=== PATIENT | female | born 1985 | race Hispanic/Latino ===

== ENCOUNTER 2017-09-07 18:15 | Emergency (ER) | payer MEDICAID ==
[2017-09-07 18:57] VITALS: RESP 18; BMI 22.3
--- NOTE | 2017-09-07 19:17 | ED PDOC ---
Arrival/HPI - General Chief Complaint: Lower Extremity Problem/Injury Time Seen by Provider: 09/07/17 18:18 Historian: Patient - History of Present Illness Narrative History of Present Illness (Text): 09/07/17 19:13 32 year old female, with no significant past medical history, who presents to the Emergency department complaining of pain to the popliteal area. Patient notes pain as a intermittent and pulsating. Patient notes she takes control pills and recently started smoking. Patient denies any fever, chills, chest pain, shortness of breath, nausea, vomiting, diarrhea, back pain, neck pain, headache, dizziness, or any other complaints. Time/Duration: Other (last night) Symptom Onset: Sudden Symptom Course: Intermittent Activities at Onset: Light Context: Home Past Medical History - Provider Review Nursing Documentation Reviewed: Yes - Infectious Disease Hx of Infectious Diseases: None - Reproductive Menopause: No - Cardiac Other/Comment: DVT - Renal Hx Renal Disorder: No - Endocrine/Metabolic Hx Endocrine Disorders: No - Integumentary Hx Dermatological Disorder: No - Gastrointestinal Hx Gastrointestinal Disorders: No - Genitourinary/Gynecological Hx Genitourinary Disorders: No - Psychiatric Hx Substance Use: No - Anesthesia Hx Anesthesia: No Family/Social History - Physician Review Nursing Documentation Reviewed: Yes Family/Social History: Unknown Family HX Smoking Status: Current Some Days Smoker Hx Alcohol Use: No Hx Substance Use: No Hx Substance Use Treatment: No Allergies/Home Meds Allergies/Adverse Reactions: Allergies No Known Allergies Allergy (Verified 09/08/12 11:43) Home Medications: Home Meds Medication Instructions Recorded Confirmed Balsalazide [Colazal] 2,250 mg PO TID 09/08/12 09/07/17 Contol Pills PO 09/08/12 09/08/12 Review of Systems - Physician Review All systems were reviewed & negative as marked: Yes - Review of Systems Constitutional: Normal Eyes: Normal ENT: Normal Respiratory: Normal. absent: SOB, Cough Cardiovascular: Normal. absent: Chest Pain Gastrointestinal: Normal. absent: Abdominal Pain, Diarrhea, Nausea, Vomiting Genitourinary Female: Normal. absent: Dysuria, Frequency Musculoskeletal: Other (politeal area pain). absent: Back Pain, Neck Pain Skin: Normal. absent: Rash Neurological: Normal. absent: Headache, Dizziness Endocrine: Normal Hemo/Lymphatic: Normal Psychiatric: Normal Physical Exam - Physical Exam Narrative Physical Exam (Text): 09/07/17 19:19 Constitutional: No acute distress. Head: Normocephalic. Atraumatic. Eyes: PERRL. ENT: Moist mucous membranes. Neck: Supple. Cardiovascular: Regular rate. DP pulse 2+. Chest: No tenderness. Respiratory: Clear to auscultation bilaterally. GI: Soft. Nontender. Nondistended. Back: No CVA tenderness. Musculoskeletal: No tenderness or swelling of extremities. Skin: No rash. Neurologic: Alert, no focal deficit. Vital Signs Reviewed: Yes Vital Signs Temp Pulse Resp BP Pulse Ox 09/07/17 18:31 99.0 F 67 18 114/76 98 Temperature: Afebrile Blood Pressure: Normal Pulse: Regular Respiratory Rate: Normal Appearance: Positive for: Well-Appearing, Non-Toxic, Comfortable Pain Distress: None Mental Status: Positive for: Alert and Oriented X 3 Medical Decision Making ED Course and Treatment: 09/07/17 19:19 Impression: 32 year old female presents to the Emergency department complaining of pain to the popliteal area. Plan: -- US lower extremity -- Reassess and disposition Progress Notes: 09/07/17 19:52 Doppler negative for DVT as per US imaging technician. - RAD Interpretation Radiology Orders: 09/07/17 19:13 DUPLEX LOWER EXTRM VEIN LEFT [US] Stat - Scribe Statement The provider has reviewed the documentation as recorded by the Scribe Gema Delcid All medical record entries made by the Scribe were at my direction and personally dictated by me. I have reviewed the chart and agree that the record accurately reflects my personal performance of the history, physical exam, medical decision making, and the department course for this patient. I have also personally directed, reviewed, and agree with the discharge instructions and disposition. Disposition/Present on Arrival - Present on Arrival Any Indicators Present on Arrival: No History of DVT/PE: No History of Uncontrolled Diabetes: No Urinary Catheter: No History of Decub. Ulcer: No History Surgical Site Infection Following: None - Disposition Have Diagnosis and Disposition been Completed?: Yes Diagnosis: Leg pain Disposition: HOME/ ROUTINE Disposition Time: 19:52 Patient Plan: Discharge Condition: STABLE Discharge Instructions (ExitCare): Muscle and Bone Pain (DC) Referrals: Dina Charles MD [Family Provider] - Follow up with primary Forms: [facility] (Arabic)
[2017-09-07 21:03] VITALS: BP 120/68; PULSE 72; TEMP 98.9; O2SAT 99
--- NOTE | 2017-09-08 15:57 | US ---
PROCEDURE: Left lower extremity venous US HISTORY: Leg pain and swelling. Evaluate for DVT. PHYSICIAN(S): Kannan Sandhu MD. TECHNIQUE: Duplex sonography and color-flow Doppler with graded compression were used to evaluate the deep venous system of the left lower extremity. FINDINGS: The visualized deep venous system of the left lower extremity is sonographically normal and compressible. Normal wave forms and augmentation are seen. There is no sonographic evidence for deep venous thrombosis in the visualized segments of the left lower extremity. IMPRESSION: 1. No sonographic evidence for deep venous thrombosis in the visualized segments of the left lower extremity.
== END 2017-09-07 20:05 | disposition home or self-care (01) ==
LOC: ED 18:15
DX: M79.604 Pain in right leg (principal)

== ENCOUNTER 2018-03-19 18:36 | Emergency (ER) | payer MEDICAID ==
[2018-03-19 18:37] VITALS: BMI 21.7
[2018-03-19] MEDS ORDERED: DiphenhydrAMINE 50 mg/ml Inj IVP STA (18:42)
[2018-03-19] MEDS ORDERED: EPINEPHrine 1 mg/ml (1:1000) Inj SC STA (18:42)
[2018-03-19] MEDS ORDERED: Sodium Chloride 0.9% 1,000 ML IV STA (18:45)
[2018-03-19] MEDS ORDERED: Albuterol 0.083% Inhal Sol (2.5 mg/3 mL) UD INH STA (18:45)
[2018-03-19] MEDS ORDERED: Albuterol 0.083% Inhal Sol (2.5 mg/3 mL) UD ONE (18:55)
[2018-03-19 19:11] LABS: BASO # 0.02 K/mm3 (0.0-2.0); BASO % 0.2 % (0.0-3.0); EOS # 0.4 (0.0-0.7); EOS % 3.6 % (1.5-5.0); GRAN # 6.08 (1.4-6.5); GRAN % 52.5 % (50.0-68.0); HEMOGLOBIN 13.7 g/dL (12.0-16.0); LYMPH # 4.7 (1.2-3.4); LYMPH % 40.8 % (22.0-35.0); MEAN CELL VOLUME 95.8 fl (80.0-105.0); MEAN CORPUSCULAR HEMOGLOBIN 31.9 pg (25.0-35.0); MEAN CORPUSCULAR HGB CONC 33.3 g/dl (31.0-37.0); MONO # 0.3 (0.1-0.6); MONO % 2.9 % (1.0-6.0); RBC 4.3 10^6/uL (3.5-6.1); RED CELL DISTRIBUTION WIDTH 13.1 % (11.5-14.5); WHITE BLOOD COUNT 11.6 10^3/uL (4.5-11.0)
[2018-03-19 19:17] LABS: ALB/GLOB RATIO 1.4 (1.1-1.8); ALT/SGPT 15 U/L (7-56); AST/SGOT 25 U/L (14-36); BLOOD UREA NITROGEN 10 mg/dL (7-21); CALCIUM 9.9 mg/dL (8.4-10.5); GFR NON-AFRICAN AMERICAN > 60
[2018-03-19 19:28] LABS: TROPONIN I < 0.01 ng/mL
--- NOTE | 2018-03-19 20:02 | ED PDOC ---
Arrival/HPI - General Chief Complaint: Allergic Reaction Time Seen by Provider: 03/19/18 18:42 Historian: Patient, EMS EM Caveat: Acuity of Condition - Critical Care Critical Care Minutes: 30 minutes - History of Present Illness Narrative History of Present Illness (Text): 03/19/18 19:58 32F w/ h/o seasonal allergies presenting to the Emergency Room for allergic r eaction that occurred several hours prior to arrival. The patient states she ordered sushi from a local restaurant that contained spicy tuna as well as spicy boris sauce as she had done in the past. She states she began to feel hives, shortness of breath and a pruritic throat immediately after ingesting the food. She denies any previous history of similar reactions in the past and has ingested the same assortment of food prior, so she was unsure of identifying the specific cause of the allergic reaction. She denies having any medications given prior to her arrival to the Emergency Room. PCP: Dr. Charles Time/Duration: Prior to Arrival Symptom Onset: Sudden Symptom Course: Unchanged Quality: Tightness, Burning Activities at Onset: Eating Context: Home Past Medical History - Provider Review Nursing Documentation Reviewed: Yes - Travel History Have you recently traveled outside [place] w/in the past 3 mons?: No - Infectious Disease Hx of Infectious Diseases: None - Cardiac Other/Comment: DVT - Renal Hx Renal Disorder: No - Endocrine/Metabolic Hx Endocrine Disorders: No - Integumentary Hx Dermatological Disorder: No - Gastrointestinal Hx Gastrointestinal Disorders: No - Genitourinary/Gynecological Hx Genitourinary Disorders: No - Psychiatric Hx Substance Use: No - Anesthesia Hx Anesthesia: No Family/Social History - Physician Review Nursing Documentation Reviewed: Yes Family/Social History: Unknown Family HX Smoking Status: Current Some Days Smoker Hx Alcohol Use: No Hx Substance Use: No Hx Substance Use Treatment: No Allergies/Home Meds Allergies/Adverse Reactions: Allergies No Known Allergies Allergy (Verified 03/19/18 18:42) Home Medications: Home Meds Medication Instructions Recorded Confirmed Balsalazide [Colazal] 2,250 mg PO TID 09/08/12 09/07/17 Contol Pills PO 09/08/12 09/08/12 Review of Systems - Review of Systems Systems not reviewed;Unavailable: Acuity of Condition Physical Exam Vital Signs Reviewed: Yes Vital Signs Temp Pulse Resp BP Pulse Ox 03/19/18 18:37 97.6 F 125 H 20 126/87 97 Temperature: Afebrile Blood Pressure: Normal Pulse: Tachycardic Respiratory Rate: Tachypneic Appearance: Positive for: Well-Appearing, Non-Toxic, Uncomfortable Pain Distress: None Mental Status: Positive for: Alert and Oriented X 3 - Systems Exam Head: Present: Atraumatic, Normocephalic Pupils: Present: PERRL Extroacular Muscles: Present: EOMI Conjunctiva: Present: Normal Mouth: Present: Moist Mucous Membranes Pharnyx: No: TONSILS ENLARGED, Peritonsilar Swelling, Uvular Deviation, Muffled/Hoarse Voice Neck: Present: Normal Range of Motion Respiratory/Chest: Present: Decreased Breath Sounds, Tachypneic. No: Accessory Muscle Use, Wheezes Cardiovascular: Present: Tachycardic Abdomen: Present: Normal Bowel Sounds. No: Tenderness, Distention, Peritoneal Signs Skin: Present: Warm, Dry, Rashes (Diffuse urticarial blanching urticarial rash spanning neck and upper chest area) Psychiatric: Present: Alert, Oriented x 3, Normal Insight, Normal Concentration Medical Decision Making ED Course and Treatment: 03/19/18 20:12 Impression 32 year old F w/ allergic reaction Plan --Labs --Pepcid --Solumedrol --Benadryl --IV Fluids --Albuterol --Subcutaneous Epinephine --Reassess & disposition Progress Notes 03/19/18 20:35 Labs reviewed with no evidence of infection. Mild leukocytosis noted, but most likely an acute reaction in light of allergic reaction. Patient reassessed with no wheezing, tongue swelling, periorbital edema or coughing noted on exam. She is advised to continue conservative management at home and to monitor for any worsening symptoms. Scripts provided with encouragement to follow up with her PCP in 3-5 days. She is stable for discharge. - Lab Interpretations Lab Results: Troponin I < 0.01 ng/mL 03/19/18 19:00 Total Bilirubin 0.6 mg/dL (0.2-1.3) 03/19/18 19:00 AST 25 U/L (14-36) 03/19/18 19:00 ALT 15 U/L (7-56) 03/19/18 19:00 Alkaline Phosphatase 44 U/L (38-126) 03/19/18 19:00 Total Protein 8.6 g/dL (5.8-8.3) H 03/19/18 19:00 Albumin 5.0 g/dL (3.0-4.8) H 03/19/18 19:00 Globulin 3.6 gm/dL 03/19/18 19:00 Albumin/Globulin Ratio 1.4 (1.1-1.8) 03/19/18 19:00 03/19/18 19:00 03/19/18 19:00 Lab Results 03/19/18 19:00: Sodium 140, Potassium 4.0, Chloride 105, Carbon Dioxide 24, Anion Gap 15, BUN 10, Creatinine 0.6 L, Est GFR ( Amer) > 60, Est GFR (Non-Af Amer) > 60, Random Glucose 120 H, Calcium 9.9, Magnesium 2.1, Total Bilirubin 0.6, AST 25, ALT 15, Alkaline Phosphatase 44, Troponin I < 0.01, Total Protein 8.6 H, Albumin 5.0 H, Globulin 3.6, Albumin/Globulin Ratio 1.4 03/19/18 19:00: WBC 11.6 H, RBC 4.30, Hgb 13.7, Hct 41.2, MCV 95.8, MCH 31.9, MCHC 33.3, RDW 13.1, Plt Count 355, MPV 10.0, Gran % 52.5, Lymph % (Auto) 40.8 H , Centre % (Auto) 2.9, Eos % (Auto) 3.6, Baso % (Auto) 0.2, Gran # 6.08, Lymph # (Auto) 4.7 H, Centre # (Auto) 0.3, Eos # (Auto) 0.4, Baso # (Auto) 0.02 I have reviewed the lab results: Yes - Medication Orders Current Medication Orders: Discontinued Medications Albuterol Sulfate (Albuterol 0.083% Inhal Libby (2.5 Mg/3 Ml) Ud) 2.5 mg INH STAT STA Stop: 03/19/18 18:46 Last Admin: 03/19/18 18:52 Dose: 2.5 mg Diphenhydramine HCl (Benadryl) 50 mg IVP STAT STA Stop: 03/19/18 18:43 Last Admin: 03/19/18 18:45 Dose: 50 mg IVP Administration Document 03/19/18 18:45 SRE (Rec: 03/19/18 18:52 SRE [id number]) Charges for Administration # of IVP Administrations 1 Epinephrine HCl (Epinephrine) 0.3 mg SC STAT STA Stop: 03/19/18 18:43 Last Admin: 03/19/18 18:51 Dose: 0.3 mg Subcutaneous Administrations Document 03/19/18 18:51 SRE (Rec: 03/19/18 18:51 SRE [id number]) Injection Site MAR Injection Site Right Arm Charges for Administration # of Subcutaneous Administrations 1 Famotidine (Pepcid) 20 mg IVP STAT STA Stop: 03/19/18 18:46 Last Admin: 03/19/18 18:52 Dose: 20 mg IVP Administration Document 03/19/18 18:52 SRE (Rec: 03/19/18 18:52 SRE [id number]) Charges for Administration # of IVP Administrations 1 Sodium Chloride (Sodium Chloride 0.9%) 1,000 mls @ 999 mls/hr IV .Q1H1M STA Stop: 03/19/18 19:45 Last Admin: 03/19/18 18:50 Dose: 999 mls/hr eMAR Start Stop Document 03/19/18 18:50 SRE (Rec: 03/19/18 18:51 SRE [id number]) Intravenous Solution Start Date 03/19/18 Start Time 18:51 End Date 03/19/18 End time 19:55 Total Infusion Time 64 Methylprednisolone (Solu-Medrol) 125 mg IVP STAT STA Stop: 03/19/18 18:43 Last Admin: 03/19/18 18:45 Dose: 125 mg IVP Administration Document 03/19/18 18:45 SRE (Rec: 03/19/18 18:51 SRE [id number]) Charges for Administration # of IVP Administrations 1 Disposition/Present on Arrival - Present on Arrival Any Indicators Present on Arrival: No History of DVT/PE: No History of Uncontrolled Diabetes: No Urinary Catheter: No History of Decub. Ulcer: No History Surgical Site Infection Following: None - Disposition Have Diagnosis and Disposition been Completed?: Yes Diagnosis: Allergic reaction, Urticarial rash Disposition: HOME/ ROUTINE Disposition Time: 20:14 Patient Plan: Discharge Patient Problems: Current Active Problems Problem Status Onset Allergic reaction Acute Urticarial rash Acute Discharge Instructions (ExitCare): Hives (DC), Allergy Skin Testing Print Language: ESTONIAN Additional Instructions: All medical record entries made by the Scribe were at my direction and personally dictated by me. I have reviewed the chart and agree that the record accurately reflects my personal performance of the history, physical exam, medical decision making, and the department course for this patient. I have also personally directed, reviewed, and agree with the discharge instructions and disposition. Please take medication as prescribed Take Benadryl ONLY if hives/itchiness is present and every SIX hours Follow up with your PMD in 3-5 days Prescriptions: DiphenhydrAMINE [Benadryl] 25 mg PO Q6H #12 cap Epinephrine HCl [Epipen Auto-Injector] 0.3 mg MR PRN PRN #2 ml PRN Reason: Anaphylaxis Famotidine [Pepcid] 40 mg PO Q6H #12 tablet Methylprednisolone [Medrol Dose Pack (21 tabs)] 4 mg PO DAILY #21 mg Referrals: Dina Charles MD [Primary Care Provider] - Follow up with primary Forms: [facility] (Peruvian), WORK NOTE
[2018-03-19 20:25] VITALS: BP 102/55; PULSE 91; RESP 16; TEMP 98; O2SAT 98
== END 2018-03-19 20:36 | disposition home or self-care (01) ==
LOC: ED 18:36
DX: L50.9 Urticaria, unspecified (principal); T78.40XA Allergy, unspecified, initial encounter; X58.XXXA Exposure to other specified factors, initial encounter
CPT/HCPCS: 80053; 83735; 84484; 85025; 96361; 96372; 96374; 96375; 99283; J0171; J1200; J2930; J7030